=== PATIENT | female | born 1990 | race Two or more races ===

== ENCOUNTER 2025-01-16 14:00 | Inpatient (IN) | payer OTHER ==
[~2025-01-16] VITALS: Ht 154.9 cm; Wt 3.6 kg
[2025-01-28 17:17] VITALS: BP 101/73
[2025-01-28] MEDS ORDERED: PRENATABS RX T1 EACH PO (17:22)
[2025-01-28] MEDS ORDERED: MISOPROSTOL 50 MCG TABLET ONE (17:25)
[2025-01-28] MEDS ORDERED: MISOPROSTOL 50 MCG TABLET VAG ONE (17:45)
[2025-01-28] MEDS ORDERED: MORPHINE SULFATE 4 MG/ML CARTRIDGE IV PRN (17:45)
[2025-01-28] MEDS ORDERED: RINGERS SOLUTION,LACTATED 1,000 ML IV SCH (17:45)
[2025-01-28 18:10] LABS: BASO % 0.4 % (0.1-1.2); EOS # 0.05 (0.04-0.54); EOS % 0.5 % (0.7-7.0); LYMPH # 1.52 (1.18-3.74); LYMPH % 14.5 % (19.3-53.1); MEAN PLATELET VOLUME 12.50 fl (9.4-12.4); MONO # 0.87 (0.24-0.82); MONO % 8.3 % (4.7-12.5); NEUT # 7.93 (1.56-6.13); NEUT % 75.8 % (34.0-71.1); RED CELL DISTRIBUTION WIDTH 13.7 % (11.6-14.4)
[2025-01-28 18:40] LABS: INR < 0.93
[2025-01-28 19:07] VITALS: BP 94/63
[2025-01-29] VITALS: BP 96/62
[2025-01-29 03:32] VITALS: BP 87/50
[2025-01-29 07:32] VITALS: BP 110/67
[2025-01-29] MEDS ORDERED: OXYTOCIN 20 UNITS/500ML RL PIGGYBAG IV ONE (07:43)
[2025-01-29] MEDS ORDERED: OXYTOCIN 500 ML IV ONE (07:45)
[2025-01-29] MEDS ORDERED: OXYTOCIN 10 UNITS/ML VIAL ONE (10:58)
[2025-01-29] MEDS ORDERED: ERYTHROMYCIN BASE OPHT 1GM EACH TUBE OP ONE (10:58)
[2025-01-29] MEDS ORDERED: CEFAZOLIN SODIUM 1,000 MG VIAL IV SCH (12:00)
[2025-01-29] MEDS ORDERED: MORPHINE SULFATE 4 MG/ML CARTRIDGE IV PRN (12:45)
[2025-01-29] MEDS ORDERED: OXYTOCIN 1,000 ML IV SCH (12:45)
[2025-01-29] MEDS ORDERED: MORPHINE SULFATE 4 MG/ML VIAL IV ONE (14:20)
[2025-01-29 17:14] VITALS: BP 104/90
[2025-01-30 01:22] VITALS: BP 116/77
[2025-01-30] MEDS ORDERED: KETOROLAC TROMETHAMINE 30 MG VIAL IV PRN (03:45)
[2025-01-30 06:25] VITALS: BP 107/71
[2025-01-30 08:14] VITALS: BP 100/62
[2025-01-30 10:07] LABS: BASO % 0.4 % (0.1-1.2); EOS # 0.05 (0.04-0.54); EOS % 0.5 % (0.7-7.0); LYMPH # 0.96 (1.18-3.74); LYMPH % 9.3 % (19.3-53.1); MEAN PLATELET VOLUME 11.70 fl (9.4-12.4); MONO # 0.83 (0.24-0.82); MONO % 8.0 % (4.7-12.5); NEUT # 8.41 (1.56-6.13); NEUT % 81.4 % (34.0-71.1); RED CELL DISTRIBUTION WIDTH 13.7 % (11.6-14.4)
[2025-01-30 13:45] VITALS: BP 95/60
[2025-01-30 16:21] VITALS: BP 93/63
[2025-01-30 19:00] VITALS: BP 99/66
[2025-01-31 01:04] VITALS: BP 100/63
[2025-01-31] MEDS ORDERED: OxyCODONE HCL 5 MG TABLET (ROXICODONE) PO PRN (06:00)
[2025-01-31 08:17] VITALS: BP 97/62
== END 2025-01-31 12:43 | disposition home or self-care (01) | DRG 788 ==
LOC: LDR 01-28 14:00 → OB/GYN 01-29 12:53
PROVIDERS: Obstetrics & Gynecology Maternal & Fetal Medicine; ADMIT Obstetrics & Gynecology; ATTEND Obstetrics & Gynecology
PROC: 3E033VJ Introduction of Other Hormone into Peripheral Vein, Percutaneous Approach (ICD-10-PCS; 2025-01-28)
PROC: 4A1HXCZ Monitoring of Products of Conception, Cardiac Rate, External Approach (ICD-10-PCS; 2025-01-28)
PROC: 3E0P7VZ Introduction of Hormone into Female Reproductive, Via Natural or Artificial Opening (ICD-10-PCS; 2025-01-29)
PROC: 10D00Z1 Extraction of Products of Conception, Low, Open Approach (ICD-10-PCS; principal; 2025-01-29 11:00)
DX: O82 Encounter for cesarean delivery without indication (principal); O62.0 Primary inadequate contractions; Z3A.40 40 weeks gestation of pregnancy; Z37.0 Single live birth

== ENCOUNTER 2025-01-22 16:29 | Outpatient (CLI) | payer OTHER | END 2025-01-22 17:35 | disposition home or self-care (01) | LOC: NST 16:29 | PROVIDERS: ATTEND Obstetrics & Gynecology Maternal & Fetal Medicine | DX: Z34.83 Encounter for supervision of other normal pregnancy, third trimester (principal) ==

== ENCOUNTER → 2025-02-04 | Emergency (ER) | payer OTHER ==
[~2025-02-04] VITALS: Ht 154.9 cm; Wt 68.0 kg
[~2025-02-04] MED LIST: 0.9 % SODIUM CHLORIDE 500 ML IV STA; ACETAMINOPHEN 500 MG GEL..CAP PO ONE; ACETAMINOPHEN 500 MG GEL..CAP PO STA; ADVIL PM LIQUI1 EACH PO; LABETALOL HCL 100 MG/20 ML ML ONE; LABETALOL HCL 200 MG/40 ML VIAL IV STA; PRENATABS RX T1 EACH PO
[2025-02-04 21:59] VITALS: O2SAT 100
[2025-02-04 23:11] LABS: BASO % 0.7 % (0.1-1.2); EOS # 0.23 (0.04-0.54); EOS % 2.0 % (0.7-7.0); LYMPH # 1.76 (1.18-3.74); LYMPH % 15.6 % (19.3-53.1); MEAN PLATELET VOLUME 10.40 fl (9.4-12.4); MONO # 0.87 (0.24-0.82); MONO % 7.7 % (4.7-12.5); NEUT # 8.30 (1.56-6.13); NEUT % 73.6 % (34.0-71.1); RED CELL DISTRIBUTION WIDTH 12.9 % (11.6-14.4)
[2025-02-04 23:52] LABS: ALT/SGPT 32.0 U/L (12-78); AST/SGOT 25.0 U/L (15-37); BILIRUBIN TOTAL 0.33 mg/dL (0.3-1.2); BILIRUBIN,CONJUGATED 0.12 mg/dL (0.0-0.2); BUN CREA RATIO 23.0 (7.0-25.0); CREATININE SERUM 0.71 mg/dL (0.55-1.02); GFR 95.4; GLOBULINA 4.0 G/DL (2.4-3.5); GLUCOSE FASTING 77.0 mg/dL (65-100); OSMOLALITY SERUM 287.0 MOSM/KG (275-295)
[2025-02-05 00:15] VITALS: BP 110/70
[2025-02-05 00:28] LABS: URINE APPEARANCE Clear; URINE BILIRRUBIN Negative (NEGATIVE); URINE BLOOD Moderate; URINE COLOR Yellow; URINE GLUCOSE Negative (NEGATIVE); URINE KETONE Negative (NEGATIVE); URINE LEUKOCYTE Trace; URINE NITRATE Negative; URINE PROTEIN Negative (NEGATIVE); URINE UROBILINOGEN 0.2 E.U./dl
[2025-02-05 00:31] LABS: URINE BACTERIA 73.1 uL (0.0-1933); URINE EPITHELIAL CELLS 3.2 uL (0.0-38.8); URINE RBC 76.6 uL (0.0-20.8); URINE WBC 8.8 uL (0.0-23.2)
[2025-02-05 00:48] LABS: URINE CAST 0.00 uL (0.0-1.40)
== END | disposition designated cancer center or children's hospital (05) ==
LOC: ER 21:31
DX: O14.95 Unspecified pre-eclampsia, complicating the puerperium (principal)

== ENCOUNTER 2025-02-05 02:47 | Inpatient (IN) | payer OTHER ==
[2025-02-05] VITALS (8 sets, daily range): BP systolic 104–130; BP diastolic 75–89; O2SAT 97–99
[~2025-02-05] VITALS: Ht 154.9 cm; Wt 68.0 kg
[~2025-02-05 02:47] MED LIST changes: -0.9 % SODIUM CHLORIDE 500 ML IV STA; -ACETAMINOPHEN 500 MG GEL..CAP PO ONE; -ACETAMINOPHEN 500 MG GEL..CAP PO STA; -ADVIL PM LIQUI1 EACH PO; -LABETALOL HCL 100 MG/20 ML ML ONE; -LABETALOL HCL 200 MG/40 ML VIAL IV STA
[2025-02-05] MEDS ORDERED: MAGNESIUM SULFATE IN WATER 4 GM/100 ML PIGGYBACK IV ONE ×2 (02:56→03:45)
[2025-02-05] MEDS ORDERED: MAGNESIUM SULFATE IN WATER 0.04 GM/ML IV.SOLN IV ONE (02:57)
[2025-02-05] MEDS ORDERED: FAMOTIDINE/PF 20 MG/2 ML VIAL IV PRN (03:30)
[2025-02-05] MEDS ORDERED: ACETAMINOPHEN 500 MG GEL..CAP PO PRN (03:30)
[2025-02-05] MEDS ORDERED: RINGERS SOLUTION,LACTATED 1,000 ML IV SCH (03:30)
[2025-02-05] MEDS ORDERED: MAGNESIUM SULFATE IN WATER IV SCH (03:30)
[2025-02-05] MEDS ORDERED: ADVIL PM LIQUI1 EACH PO (05:57)
[2025-02-05] MEDS ORDERED: MAGNESIUM SULFATE IN WATER 500 ML IV SCH (06:30)
[2025-02-06 04:20] VITALS: BP 103/73
[2025-02-06 06:39] VITALS: BP 119/76; O2SAT 99
== END 2025-02-06 10:14 | disposition home or self-care (01) | DRG 776 ==
LOC: LDR
PROVIDERS: ADMIT Obstetrics & Gynecology Gynecology; ATTEND Obstetrics & Gynecology Gynecology
DX: O14.95 Unspecified pre-eclampsia, complicating the puerperium (principal)